=== PATIENT | male | born 1965 | race Caucasian/White ===

== ENCOUNTER 2022-07-25 07:35 | Day surgery (SDC) | payer BC, OTHER ==
[2022-07-24 10:34] VITALS: BMI 36.9
[2022-07-25] MEDS ORDERED: PROPOFOL 40 ML ONE (07:52)
[2022-07-25 09:57] VITALS: RESP 20
[2022-07-25 10:12] VITALS: BP 130/80; PULSE 79; TEMP 97.5
== END 2022-07-25 10:12 | disposition home or self-care (01) ==
LOC: FASU-ENDO 07:35
PROVIDERS: ATTEND Internal Medicine Gastroenterology
PROC: 0DBN8ZX Excision of Sigmoid Colon, Via Natural or Artificial Opening Endoscopic, Diagnostic (ICD-10-PCS; principal; 2022-07-25 08:46)
DX: Z12.11 Encounter for screening for malignant neoplasm of colon (principal); Z86.010 Personal history of colon polyps; K64.1 Second degree hemorrhoids; K57.30 Diverticulosis of large intestine without perforation or abscess without bleeding; K63.5 Polyp of colon
CPT/HCPCS: 88305-TC

== ENCOUNTER 2023-01-01 17:25 | Emergency (ER) | payer BC, OTHER ==
[2023-01-01 17:39] VITALS: BP 166/98; PULSE 78; RESP 15; TEMP 98.9; BMI 36.1
[2023-01-01 19:07] LABS: ALBUMIN 4.5 g/dl (3.4-5.0); CALCIUM 9.3 mg/dl (8.5-10); TOT PROT 7.8 g/dl (6.4-8.2)
[2023-01-01 20:30] LABS: HEMOGLOBIN 13.7 GM/dL (11.7-16.9); PLATELET COUNT 232 10^3/uL (134-434); RDW 13.1 % (11.9-15.9)
[2023-01-01 20:32] LABS: HEMATOCRIT 41.2 % (35.4-49); MCH 28.1 pg (25.7-33.7); MCHC 33.3 g/dl (32.0-35.9); MEAN CELL VOLUME 84.3 fl (80-96); MEAN PLT VOLUME 8.5 fl (7.5-11.1); RBC 4.89 M/mm3 (4.00-5.60); WHITE BLOOD COUNT 7.2 K/mm3 (4.0-10.0)
== END 2023-01-01 19:55 | disposition home or self-care (01) ==
LOC: FER 17:25
DX: R10.9 Unspecified abdominal pain (principal); K59.00 Constipation, unspecified
CPT/HCPCS: 36415; 74176-TC; 80053; 81003; 81015; 85027; 87086; 99284-25

== ENCOUNTER 2023-01-09 22:15 | Emergency (ER) | payer BC, OTHER ==
[2023-01-09 22:20] VITALS: BP 145/96; PULSE 97; RESP 18; TEMP 98.8; BMI 36.1
[2023-01-09 23:17] LABS: ALBUMIN 4.1 g/dl (3.4-5.0); BILIRUBIN,TOTAL 0.7 mg/dl (0.2-1); CALCIUM 8.9 mg/dl (8.5-10); CREATININE 1.2 mg/dl (0.55-1.3); TOT PROT 7.2 g/dl (6.4-8.2)
[2023-01-10 00:13] LABS: HEMATOCRIT 39.7 % (35.4-49); HEMOGLOBIN 13.3 GM/dL (11.7-16.9); MCH 28.2 pg (25.7-33.7); MCHC 33.6 g/dl (32.0-35.9); MEAN PLT VOLUME 8.6 fl (7.5-11.1); PLATELET COUNT 207 10^3/uL (134-434); RBC 4.73 M/mm3 (4.00-5.60); RDW 12.8 % (11.9-15.9); WHITE BLOOD COUNT 5.8 K/mm3 (4.0-10.0)
== END 2023-01-10 02:48 | disposition home or self-care (01) ==
LOC: FER 22:15
DX: R31.0 Gross hematuria (principal)
CPT/HCPCS: 36415; 74176-TC; 80053; 81003; 81015; 85027; 87077; 87086; 99284-25

== ENCOUNTER 2023-08-18 11:06 | Day surgery (SDC) | payer BC, OTHER ==
[2023-08-14 17:13] VITALS: BMI 36.9
[2023-08-18 15:40] VITALS: TEMP 97.6
[2023-08-18 15:47] VITALS: BP 118/76; PULSE 93; RESP 17
== END 2023-08-18 14:35 | disposition home or self-care (01) ==
LOC: FASU-ENDO 11:06
PROVIDERS: ATTEND Internal Medicine Gastroenterology
PROC: 0DB78ZX Excision of Stomach, Pylorus, Via Natural or Artificial Opening Endoscopic, Diagnostic (ICD-10-PCS; 2023-08-18)
PROC: 0DB68ZX Excision of Stomach, Via Natural or Artificial Opening Endoscopic, Diagnostic (ICD-10-PCS; 2023-08-18)
PROC: 0DB48ZX Excision of Esophagogastric Junction, Via Natural or Artificial Opening Endoscopic, Diagnostic (ICD-10-PCS; 2023-08-18)
PROC: 0DB98ZX Excision of Duodenum, Via Natural or Artificial Opening Endoscopic, Diagnostic (ICD-10-PCS; principal; 2023-08-18 13:41)
DX: K21.00 Gastro-esophageal reflux disease with esophagitis, without bleeding (principal); K29.50 Unspecified chronic gastritis without bleeding; K31.7 Polyp of stomach and duodenum